=== PATIENT | male | born 1935 | race Caucasian/White ===

== ENCOUNTER 2018-08-11 05:33 | Day surgery (SDC) | payer MEDICARE, OTHER ==
[2018-08-10 09:25] LABS: BASOPHILS % (AUTO) 0.4 % (0-1); EOSINOPHILS # (AUTO) 0.1 X10'3 (0-0.9); EOSINOPHILS % (AUTO) 0.9 % (0-6); HEMATOCRIT 30.8 % (42.0-52.0); HEMOGLOBIN 10.1 g/dl (14.0-17.9); LYMPHOCYTES # (AUTO) 1.4 X10'3 (1.1-4.8); LYMPHOCYTES % (AUTO) 18.5 % (21-51); MEAN CORPUSCULAR HEMOGLOBIN 30.9 PG (27.0-31.0); MEAN CORPUSCULAR HGB CONC 32.9 g/dL (33.0-36.5); MEAN CORPUSCULAR VOLUME 93.7 FL (78-98); MEAN PLATELET VOLUME 8.8 FL (7.4-10.4); MONOCYTES # (AUTO) 0.4 X10'3 (0-0.9); MONOCYTES % (AUTO) 4.9 % (2-12); NEUTROPHILS # (AUTO) 5.6 X10'3 (1.8-7.7); NEUTROPHILS % (AUTO) 75.3 % (42-75); PLATELET COUNT 146 X10'3 (140-440); RED BLOOD COUNT 3.29 X10'6 (4.70-6.10); RED CELL DISTRIBUTION WIDTH 15.9 % (11.5-14.5); WHITE BLOOD COUNT 7.5 X10'3 (4.5-11.0)
[2018-08-10 09:34] LABS: INR 2.1 INR; PARTIAL THROMBOPLASTIN TIME 32 SECONDS (22-32)
[2018-08-10 09:36] LABS: ALBUMIN 3.2 G/DL (3.4-5.0); ANION GAP 9 (8-16); BLOOD UREA NITROGEN 26 MG/DL (7-18); BUN/CREATININE RATIO 24.1 (5.4-32.0); CALCIUM 9.2 MG/DL (8.5-10.1); CHLORIDE 101 MMOL/L (99-107); CREATININE 1.08 MG/DL (0.60-1.10); GLUCOSE 226 MG/DL (70-104); POTASSIUM 4.1 MMOL/L (3.5-5.1); SODIUM 137 MMOL/L (135-145); TOTAL CARBON DIOXIDE 26.7 MMOL/L (24-32); eGFR 65 ML/MIN
[~2018-08-11] VITALS: Ht 167.6 cm; Wt 72.6 kg
[~2018-08-11 05:33] MED LIST: BUDE10.2 INH; GLIM2TAB2 PO; METF500T PO; PIOG30TA10 PO; ROSU20TA2 PO; WARF-55 PO
[2018-08-11 06:12] VITALS: BP 113/57
[2018-08-11] MEDS ORDERED: diphenhydrAMINE 25mg capsule PO PRN (06:15)
[2018-08-11] MEDS ORDERED: LORazepam 0.5 MG tablet PO PRN (06:15)
[2018-08-11] MEDS ORDERED: normal saline 1,000 ML IV SCH (06:15)
[2018-08-11] MEDS ORDERED: iohexol 350MG/ML 100ml bottle IV ONE (06:48)
[2018-08-11] MEDS ORDERED: midazolam 2 mg/2 ml injection ONE (06:48)
[2018-08-11] MEDS ORDERED: fentaNYL/PF 50MCG/1 ML 2ML syringe ONE (06:48)
[2018-08-11] MEDS ORDERED: LIDOcaine 1% (10mg/ml)w/preservative injection 20ml MDV ONE (06:48)
--- NOTE | 2018-08-11 06:55 | NUR ---
PT PROCEDURE CANCELLED PER DR HEBERT.
[2018-08-11] MEDS ORDERED: METO-539 PO (07:35)
[2018-08-11] MEDS ORDERED: GLIM2TAB2 PO (07:35)
[2018-08-11] MEDS ORDERED: prednisolone PO (07:35)
[2018-08-11] MEDS ORDERED: PIOG15TA8 PO (07:35)
[2018-08-11] MEDS ORDERED: DILT30TA5 PO (07:35)
[2018-08-11] MEDS ORDERED: ROSU20TA2 PO (07:35)
--- NOTE | 2018-08-11 08:10 | NUR ---
PT HAD REQUESTED TO WAIT FOR DISCHARGE TO EAT BREAKFAST TRAY. PT IV DC'D, CANNULA INTACT, NO S/S OF INFECTION. PT EDUCATED TO CONTINUE TO HOLD COUMADIN, PT TO CALL DR. HEBERT OFFICE TODAY. PT TO BE RESCHEDULED IN A COUPLE OF DAYS PER MD. PT VERBALIZED UNDERSTANDING OF VERBAL INSTRUCTIONS. ALSO VERBALLY NOTED UNDERSTANDING, PT EXITED UNIT BY W/C WITH ALL BELONGINGS.
== END 2018-08-11 08:10 | disposition home or self-care (01) ==
LOC: SSTAY O 05:33
PROVIDERS: ATTEND Internal Medicine Interventional Cardiology
DX: I35.0 Nonrheumatic aortic (valve) stenosis (principal); Z53.8 Procedure and treatment not carried out for other reasons; J44.9 Chronic obstructive pulmonary disease, unspecified; I48.91 Unspecified atrial fibrillation; I50.9 Heart failure, unspecified; E11.51 Type 2 diabetes mellitus with diabetic peripheral angiopathy without gangrene; Z86.718 Personal history of other venous thrombosis and embolism
CPT/HCPCS: 36415; 80048; 82948; 85025; 85610; 85730; 93005; A6257; J1644; J2001; J2250; J3010; J7030; Q0163; Q9967; C1769

== ENCOUNTER 2018-08-13 14:08 | Day surgery (SDC) | payer MEDICARE, OTHER ==
[~2018-08-13] VITALS: Ht 168.9 cm; Wt 73.9 kg
[2018-08-13] VITALS (8 sets, daily range): BP systolic 136–166; BP diastolic 55–77
[~2018-08-13 14:08] MED LIST changes: +DILT30TA5 PO; +METO-539 PO; +PIOG15TA8 PO; -PIOG30TA10 PO; +prednisolone PO
[2018-08-13] MEDS ORDERED: normal saline 1000ml 1,000 ML IV SCH (15:05)
[2018-08-13] MEDS ORDERED: diphenhydrAMINE 25mg capsule PO ONE (15:10)
[2018-08-13] MEDS ORDERED: LORazepam 0.5 MG tablet PO ONE (15:10)
[2018-08-13] MEDS ORDERED: LIDOcaine 1% (10mg/ml)w/preservative injection 20ml MDV ONE (15:30)
[2018-08-13] MEDS ORDERED: iohexol 350MG/ML 100ml bottle IV ONE (15:30)
[2018-08-13] MEDS ORDERED: fentaNYL/PF 50MCG/1 ML 2ML syringe ONE (15:30)
[2018-08-13] MEDS ORDERED: midazolam 2 mg/2 ml injection ONE (15:30)
[2018-08-13] MEDS ORDERED: GABA-532 PO (15:33)
[2018-08-13 15:42] LABS: INR 1.1 INR; PARTIAL THROMBOPLASTIN TIME 24 SECONDS (22-32)
[2018-08-13] MEDS ORDERED: OXAZEpam 15mg capsule PO PRN (16:30)
[2018-08-13] MEDS ORDERED: ondansetron/PF 4mg/2ml inj IV PRN (16:35)
[2018-08-13] MEDS ORDERED: proCHLORperazine 10 MG/2 ml inj IV PRN (16:35)
== END 2018-08-13 18:30 | disposition home or self-care (01) ==
LOC: SSTAY O 14:08
PROVIDERS: ATTEND Internal Medicine Interventional Cardiology
DX: I25.10 Atherosclerotic heart disease of native coronary artery without angina pectoris (principal); I35.0 Nonrheumatic aortic (valve) stenosis; J44.9 Chronic obstructive pulmonary disease, unspecified; I48.91 Unspecified atrial fibrillation; I48.0 Paroxysmal atrial fibrillation; I50.31 Acute diastolic (congestive) heart failure; E78.5 Hyperlipidemia, unspecified; I70.219 Atherosclerosis of native arteries of extremities with intermittent claudication, unspecified extremity; E11.51 Type 2 diabetes mellitus with diabetic peripheral angiopathy without gangrene; Z79.899 Other long term (current) drug therapy; Z86.718 Personal history of other venous thrombosis and embolism; Z87.891 Personal history of nicotine dependence
CPT/HCPCS: 36415; 82948; 85610; 85730; 93454; A6257; J1644; J2001; J2250; J3010; J7030; Q0163; Q9967; A4620; C1769